=== PATIENT | male | born 1965 | race Caucasian/White ===

== ENCOUNTER 2016-09-21 07:15 | Observation (INO) | payer BC ==
[2016-09-21] VITALS (12 sets, daily range): BP systolic 115–145; BP diastolic 71–99; PULSE 65–91; RESP 16–20; TEMP 96.6–98.8; O2SAT 94–100
[~2016-09-21] VITALS: Ht 188 cm; Wt 141.3 kg
[2016-09-21] MEDS ORDERED: ASPI1TAB69 PO (07:43)
[2016-09-21] MEDS ORDERED: ASPIRIN 81 MG CHEW TAB PO ONE (07:45)
[2016-09-21] MEDS ORDERED: SODIUM CHLORIDE 0.9% FLUSH 5 ML FLUSH IVF PRN ×2 (07:45→09:45)
--- NOTE | 2016-09-21 07:45 | PD ---
HPI Chief Complaint: Chest Pain Time Seen by Provider: 07:38 Travel History International Travel<30 days: No Contact w/Intl Traveler<30days: No Traveled to known affect area: No History of Present Illness HPI 51-year-old male with history of either SVT or A. fib status post ablation 2 years ago, followed by scraper hand Dr. Prater, here for evaluation of chest pain. The patient has had left-sided chest pain for the last 2 days which is intermittently worse at times. He notices the pain is worse in the mornings. There are no modifying factors. Pain is described as an ache, nonradiating. He denies dyspnea. No history of DVT or PE. No known history of coronary artery disease. No paresthesias or motor deficits. No fevers, chills, cough, or recent illness. PFSH Past Medical History Heart Rhythm Problems: Yes Cancer: No Cardiovascular Problems: No High Cholesterol: No Chest Pain: No Congestive Heart Failure: No Diabetes: No Diminished Hearing: No Endocrine: No Gastrointestinal Disorders: No Genitourinary: No Hypertension: Yes Immune Disorder: No Implanted Vascular Access Dvce: No Musculoskeletal: No Neurologic: No Psychiatric: No Reproductive: No Respiratory: No Immunizations Current: Yes Past Surgical History Cardiac Surgery: Yes (ablation) Eye Surgery: Yes (RIGHT EYE) Oral Surgery: Yes (TEETH PULLED) Tonsillectomy: Yes Other Surgery: Yes (T&A) Social History Alcohol Use: No Tobacco Use: No Substance Use: No Allergies-Medications (Allergen,Severity, Reaction): Coded Allergies: Amoxicillin (Verified Allergy, Mild, nausea, 09/21/16) Reported Meds & Prescriptions Reported Meds & Active Scripts Active Reported Aspirin 81 Mg Tabdr 81 Mg PO DAILY Review of Systems Except as stated in HPI: all other systems reviewed are Neg Physical Exam Narrative GENERAL: Well-developed, well-nourished, comfortable, no acute distress. SKIN: Warm and dry. No rash. HEAD: Atraumatic. Normocephalic. EYES: Pupils equal and round. No scleral icterus. No injection or drainage. ENT: Mucous membranes pink and moist. NECK: Trachea midline. No JVD. CARDIOVASCULAR: Regular rate and rhythm. Distal pulses brisk and equal bilaterally. RESPIRATORY: No accessory muscle use. Clear to auscultation. Breath sounds equal bilaterally. GASTROINTESTINAL: Abdomen soft, non-tender, nondistended. MUSCULOSKELETAL: No obvious deformities. No clubbing. No cyanosis. No edema. NEUROLOGICAL: Awake and alert. No obvious cranial nerve deficits. Motor grossly within normal limits. Normal speech. PSYCHIATRIC: Appropriate mood and affect; insight and judgment normal. Data Data Last Documented VS Vital Signs Date Time Temp Pulse Resp B/P Pulse Ox O2 Delivery O2 Flow Rate FiO2 09/21/16 08:02 16 09/21/16 08:00 91 125/71 94 Room Air 09/21/16 07:20 98.8 Orders Basic Metabolic Panel (Bmp) (09/21/16 07:42) Ckmb (Isoenzyme) Profile (09/21/16 07:42) Complete Blood Count With Diff (09/21/16 07:42) Magnesium (Mg) (09/21/16 07:42) Prothrombin Time / Inr (Pt) (09/21/16 07:42) Act Partial Throm Time (Ptt) (09/21/16 07:42) Troponin I (09/21/16 07:42) Chest, Single Ap (09/21/16 07:42) Ecg Monitoring (09/21/16 07:42) Bilateral Bp Monitoring (09/21/16 07:42) Iv Access Insert/Monitor (09/21/16 07:42) Oximetry (09/21/16 07:42) Aspirin Chew (Aspirin Chew) (09/21/16 07:45) Sodium Chloride 0.9% Flush (Ns Flush) (09/21/16 07:45) Nitroglycerin Sl (Nitrostat Sl) (09/21/16 07:45) CKMB (09/21/16 07:35) CKMB% (09/21/16 07:35) Labs Laboratory Tests Test 09/21/16 07:35 White Blood Count 7.0 TH/MM3 Red Blood Count 5.44 MIL/MM3 Hemoglobin 16.1 GM/DL Hematocrit 49.4 % Mean Corpuscular Volume 90.9 FL Mean Corpuscular Hemoglobin 29.6 PG Mean Corpuscular Hemoglobin 32.6 % Concent Red Cell Distribution Width 12.4 % Platelet Count 212 TH/MM3 Mean Platelet Volume 9.0 FL Neutrophils (%) (Auto) 59.3 % Lymphocytes (%) (Auto) 30.6 % Monocytes (%) (Auto) 8.0 % Eosinophils (%) (Auto) 1.7 % Basophils (%) (Auto) 0.4 % Neutrophils # (Auto) 4.2 TH/MM3 Lymphocytes # (Auto) 2.1 TH/MM3 Monocytes # (Auto) 0.6 TH/MM3 Eosinophils # (Auto) 0.1 TH/MM3 Basophils # (Auto) 0.0 TH/MM3 CBC Comment DIFF FINAL Differential Comment Prothrombin Time 10.4 SEC Prothromb Time International 0.9 RATIO Ratio Activated Partial 26.5 SEC Thromboplast Time Sodium Level 142 MEQ/L Potassium Level 4.3 MEQ/L Chloride Level 111 MEQ/L Carbon Dioxide Level 23.0 MEQ/L Anion Gap 8 MEQ/L Blood Urea Nitrogen 13 MG/DL Creatinine 0.79 MG/DL Estimat Glomerular Filtration 103 ML/MIN Rate Random Glucose 98 MG/DL Calcium Level 8.5 MG/DL Magnesium Level 2.0 MG/DL Total Creatine Kinase 200 U/L Creatine Kinase MB 1.9 NG/ML Troponin I LESS THAN 0.02 NG/ML MDM Medical Decision Making Medical Screen Exam Complete: Yes Emergency Medical Condition: Yes Medical Record Reviewed: Yes Interpretation(s) EKG: Sinus, rate 68, leftward axis, normal intervals, nonspecific inferior T- wave changes, poor R-wave progression, no ST segment abnormalities. Differential Diagnosis ACS, pneumothorax, pericarditis, PE, pneumonia, dissection Narrative Course Vital signs show heart rate 65, blood pressure 137/76, pulse ox 99% on room air , oral temp of 98.8F. CBC is unremarkable. BMP is unremarkable. Cardiac enzymes are negative. Chest x-ray interpreted by me shows no infiltrate, no pneumothorax, no free air. The patient was given 2 sublingual nitroglycerin with complete resolution in chest pain. He was made aware of all findings. I believe he is a good candidate for further cardiac evaluation in the chest pain center. He is amenable to this plan. Case discussed with the patient's scraper hand Dr. Prater who agrees with admission to the chest pain center. Case discussed with hospitalist Dr. Kruse who will admit the patient to her service. Diagnosis Primary Impression: Chest pain Qualified Code: R07.9 - Chest pain, unspecified type Admitting Information Admitting Physician Requests: Ken Fleming MD Sep 21, 2016 07:45
[2016-09-21] MEDS: NITROGLYCERIN 0.4 MG SL 25 TABS/BTL SL SCH ×3 (07:52→07:57)
[2016-09-21 08:02] LABS: AUTOMATED NEUTROPHIL # 4.2 TH/MM3 (1.8-7.7); BASOPHIL % 0.4 % (0.0-2.0); EOSINOPHIL # 0.1 TH/MM3 (0-0.4); EOSINOPHIL % 1.7 % (0.0-4.0); HEMATOCRIT 49.4 % (39.0-51.0); HEMO FLAGS DIFF FINAL; LYMPH % 30.6 % (9.0-44.0); LYMPHOCYTE # 2.1 TH/MM3 (1.0-4.8); MEAN CELL VOLUME 90.9 FL (80.0-100.0); MEAN CORPUSCULAR HEMOGLOBIN 29.6 PG (27.0-34.0); MEAN CORPUSCULAR HGB CONC 32.6 % (32.0-36.0); NEUT % 59.3 % (16.0-70.0); PLATELET COUNT 212 TH/MM3 (150-450); RED BLOOD COUNT 5.44 MIL/MM3 (4.50-5.90); RED CELL DISTRIBUTION WIDTH 12.4 % (11.6-17.2)
[2016-09-21 08:08] LABS: CHLORIDE 111 MEQ/L (98-107); POTASSIUM 4.3 MEQ/L (3.5-5.1); SODIUM (NA) 142 MEQ/L (136-145)
[2016-09-21 08:12] LABS: ANION GAP 8 MEQ/L (5-15); BLOOD UREA NITROGEN 13 MG/DL (7-18)
[2016-09-21 08:13] LABS: APTT (PATIENT) 26.5 SEC (24.3-30.1); INTERNATIONAL NORMALIZED RATIO 0.9 RATIO; PROTHROMBIN TIME - PATIENT 10.4 SEC (9.8-11.6)
[2016-09-21 08:15] LABS: GLOMERULAR FILTRATION RATE 103 ML/MIN (>89)
[2016-09-21 08:18] LABS: CREATINE KINASE 200 U/L (39-308)
[2016-09-21 08:30] LABS: CKMB 1.9 NG/ML (0.5-3.6)
--- NOTE | 2016-09-21 09:08 | RADHPO ---
EXAM DATE/TIME: 09/21/2016 07:44 [facility] COMPARISON: CHEST SINGLE AP, November 06, 2014, 17:45. INDICATIONS : Chest pain for 2 days. MEDICAL HISTORY : None. SURGICAL HISTORY : Cardiac ablation. ENCOUNTER: Initial ACUITY: 2 days PAIN SCORE: 6/10 LOCATION: Bilateral chest FINDINGS: A single view of the chest demonstrates the lungs to be symmetrically aerated without evidence of mas s, infiltrate or effusion. The cardiomediastinal contours are unremarkable. Osseous structures are intact. CONCLUSION: No acute disease. Therese Banuelos MD on September 21, 2016 at 9:06 Board Certified Radiologist. This report was verified electronically.
[2016-09-21] MEDS ORDERED: ONDANSETRON HCL 4 MG/2 ML VIAL IV PRN (09:45)
[2016-09-21] MEDS ORDERED: MORPHINE SULFATE 4 MG/ML INJ IV PRN (09:45)
[2016-09-21] MEDS ORDERED: ACETAMINOPHEN/HYDROcodone 325 MG/7.5 MG TAB PO PRN (09:45)
[2016-09-21] MEDS ORDERED: ACETAMINOPHEN 500 MG CPLT PO PRN (09:45)
[2016-09-21] MEDS ORDERED: NITROGLYCERIN 0.4 MG SL 25 TABS/BTL SL PRN (09:45)
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
[2016-09-21 11:17] LABS: CREATINE KINASE 194 U/L (39-308)
[2016-09-21 11:30] LABS: CKMB 1.6 NG/ML (0.5-3.6)
[2016-09-21] MEDS: SILVER SULFADIAZINE 1% CR 50 GM JAR TOPICAL SCH ×2 (12:41→21:05)
[2016-09-21 14:01] LABS: CREATINE KINASE 181 U/L (39-308)
[2016-09-21 14:15] LABS: CKMB 1.3 NG/ML (0.5-3.6)
[2016-09-21] MEDS ORDERED: IOHEXOL 350 MG/ML 10 ML VIAL (for RAD DIAG) IV ONE (19:54)
--- NOTE | 2016-09-21 20:04 | RADHPO ---
EXAM DATE/TIME: 09/21/2016 19:23 [facility] COMPARISON: No previous studies available for comparison. INDICATIONS : Left chest pain. IV CONTRAST: 75 cc Omnipaque 350 (iohexol) IV RADIATION DOSE: 21.81 CTDIvol (mGy) MEDICAL HISTORY : Hypertension. SURGICAL HISTORY : Cardiac ablation. ENCOUNTER: Initial ACUITY: 2 days PAIN SCALE: 1/10 LOCATION: Left chest TECHNIQUE: Volumetric scanning of the chest was performed using a pulmonary embolism protocol MIP images were re constructed. Using automated exposure control and adjustment of the mA and/or kV according to patien t size, radiation dose was kept as low as reasonably achievable to obtain optimal diagnostic quality images. FINDINGS: PULMONARY ARTERIES: No filling defects are seen in the pulmonary arteries through the segmental level. LUNGS: There is no consolidation or pneumothorax . No concerning pulmonary nodule is visualized. PLEURAE: There is no pleural thickening or pleural effusion. MEDIASTINUM: There is good visualization of the great vessels of the middle mediastinum. No evidence of mediastin al or hilar adenopathy/mass. Incidental direct origin of the left vertebral artery from the aortic ar ch. MUSCULOSKELETAL: Within normal limits for patient age. MISCELLANEOUS: The visualized upper abdominal organs demonstrate no acute abnormality. CONCLUSION: No evidence of pulmonary embolism George Kapadia MD on September 21, 2016 at 19:56 Board Certified Radiologist. This report was verified electronically.
[2016-09-21] MEDS: SODIUM CHLOR 0.9% 1000 ML INJ 1,000 ML IV SCH (21:05)
[2016-09-21] MEDS: SODIUM CHLORIDE 0.9% FLUSH 5 ML FLUSH IVF SCH (21:05)
[2016-09-22] VITALS: BP 107/75; PULSE 67; RESP 18; TEMP 95.9; O2SAT 96
[2016-09-22 04:00] VITALS: BP 109/76; PULSE 75; RESP 18; TEMP 96; O2SAT 97
[2016-09-22] MEDS: SODIUM CHLOR 0.9% 1000 ML INJ 1,000 ML IV SCH (04:30)
[2016-09-22] MEDS: SODIUM CHLORIDE 0.9% FLUSH 5 ML FLUSH IVF SCH (07:37)
[2016-09-22 07:38] VITALS: PULSE 94
[2016-09-22 07:51] VITALS: O2SAT 96
[2016-09-22 08:00] VITALS: BP 134/87; PULSE 67; RESP 20; TEMP 96.3; O2SAT 94
[2016-09-22] MEDS: SILVER SULFADIAZINE 1% CR 50 GM JAR TOPICAL SCH (08:12)
[2016-09-22] MEDS ORDERED: ASPIRIN 325 MG TAB PO SCH (09:00)
[2016-09-22] MEDS ORDERED: REGADENOSON INJ 0.4 MG/5 ML SYR IV ONE (10:05)
--- NOTE | 2016-09-22 11:17 | RADHPO ---
EXAM DATE/TIME: 09/22/2016 10:25 [facility] COMPARISON: MYOCARDIAL PERF PHARM SPECT, GATED W/EF, November 07, 2014, 14:20. INDICATIONS : Substernal chest pain without radiation. Abnormal exercise treadmill test. DOSE: 35 mCi Tc99m Myoview at stress. 11 mCi Tc99m Myoview at rest. 0.4 mg Lexiscan STRESS SYMPTOMS: Dyspnea and headache. EJECTION FRACTION: 56% MEDICAL HISTORY : Atrial fibrillation. SURGICAL HISTORY : Tonsillectomy. Cardiac ablation. ENCOUNTER: Initial ACUITY: 2 days PAIN SCALE: 6/10 LOCATION: Substernal chest TECHNIQUE: The patient underwent pharmacologic stress with infusion of prescribed dose. Continuous ECG tracing was monitored during stress. Gated SPECT imaging was performed after stress and conventional SPECT i maging was performed at rest. The examination was performed on a SPECT/CT scanner, both attenuation and non-corrected datasets were reviewed. FINDINGS: DISTRIBUTION: The maximum perfused segment at stress is in the anterolateral wall. PERFUSION STUDY: The pattern of perfusion at stress is within normal limits. GATED STUDY: There is intact wall motion and thickening without hypokinetic or dyskinetic segments. CONCLUSION: No reversible perfusion defect to indicate stress-induced myocardial ischemia identified. RISK CATEGORY: Low (<1% Annual Mortality Rate) Ciro Urbina MD on September 22, 2016 at 11:14 Board Certified Radiologist. This report was verified electronically.
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
[2016-09-22] MEDS ORDERED: ACETAMINOPHEN 325 MG TAB PO ONE (11:45)
[2016-09-22 11:54] VITALS: BP 149/93; PULSE 69; RESP 20; TEMP 97.6; O2SAT 97
[2016-09-22] MEDS ORDERED: BACT800T5 PO (12:06)
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
--- NOTE | 2016-09-22 15:21 | EKG ---
Date Performed: 09/21/2016 Time Performed: 14:20:20 PTAGE: 51 years EKG: Sinus rhythm Poor R wave progression - probable normal variant Inferior and anterior T wave changes are nonspecif ic Borderline ECG PREVIOUS TRACING : 09/21/2016 10.49 Since previous tracing, no significant change noted DOCTOR: David Hartley Interpretating Date/Time 09/22/2016 15:20:17
--- NOTE | 2016-09-22 15:23 | EKG ---
Date Performed: 09/21/2016 Time Performed: 10:49:50 PTAGE: 51 years EKG: Sinus rhythm Poor R wave progression - probable normal variant Borderline ECG PREVIOUS TRACING : 09/21/2016 07.30 Since previous tracing, no significant change noted DOCTOR: David Hartley Interpretating Date/Time 09/22/2016 15:21:48
--- NOTE | 2016-09-22 15:23 | EKG ---
Date Performed: 09/21/2016 Time Performed: 07:30:04 PTAGE: 51 years EKG: Sinus rhythm Poor R wave progression - probable normal variant Borderline ECG PREVIOUS TRACING : 12/08/2014 04.58 Since previous tracing, no significant change noted DOCTOR: David Hartley Interpretating Date/Time 09/22/2016 15:22:32
--- NOTE | 2016-09-22 15:25 | TR ---
Date Performed: 09/22/2016 Time Performed: 10:30:46 DOCTOR: David Hartley DRUG LIST: CLINICAL HISTORY: CHEST PAIN CHEST PAIN REASON FOR TEST: Chest pain. REASON FOR ENDING: OBSERVATION: CONCLUSION: Lexiscan stress test was performed under standard four minute protocol. Radionuclid e was injected one minute prior to ending the test. No electrocardiographic abormalities were present to suggest ischemia. Nuclear imaging and interpretation are pending. COMMENTS:
--- NOTE | 2016-09-22 15:30 | TR ---
Date Performed: 09/21/2016 Time Performed: 16:12:36 DOCTOR: David Hartley DRUG LIST: CLINICAL HISTORY: CHEST PAIN REASON FOR TEST: REASON FOR ENDING: OBSERVATION: CONCLUSION: Patient tolerated ZABRINA protocol with Total Exercise Time=6:37 Maximum WL=553 % Max HR Achieved=86.0% Maximum UU=952/80. Testing stopped due to goal achieved and exercise fatigue. Patie nt started out with 1/10 L sided chest pain which worsened to 5/10 with exertion and started decreasi ng during recovery. HR and BP appropriate response to exercise. HR and BP receovered appropriately. COMMENTS: ST changes noted at peak exercise. This resolved quickly in recovery suggesting possib le false positive. Will repeat with nuclear imaging
== END 2016-09-22 12:50 | disposition home or self-care (01) ==
LOC: PHED 07:15 → PHEDA 09:20 → PHEDH 13:18 → PH3B 21:44
PROVIDERS: ADMIT Hospitalist; ATTEND Hospitalist
DX: R07.89 Other chest pain (principal); R23.4 Changes in skin texture; I48.91 Unspecified atrial fibrillation; I10 Essential (primary) hypertension; R94.31 Abnormal electrocardiogram [ECG] [EKG]; E66.3 Overweight; Z68.41 Body mass index [BMI] 40.0-44.9, adult; Z82.49 Family history of ischemic heart disease and other diseases of the circulatory system
CPT/HCPCS: 71010; 71275; 78452; 80048; 82550; 82552; 83735; 84484; 85025; 85379; 85610; 85730; 93005; 93017; 99285; A9502; G0378; J2785; J7030; Q9967

== ENCOUNTER 2016-11-15 07:58 | Day surgery (SDC) | payer BC ==
[~2016-11-15] VITALS: Ht 188 cm; Wt 140.3 kg
[~2016-11-15 07:58] MED LIST: ASPI1TAB69 PO; BACT800T5 PO
[2016-11-15 08:15] VITALS: BP 142/98; PULSE 66; RESP 18; O2SAT 97
[2016-11-15] MEDS ORDERED: diphenhydrAMINE HCL 50 MG CAP PO SCH (08:30)
[2016-11-15] MEDS ORDERED: METO25TA3 PO (08:54)
[2016-11-15] MEDS ORDERED: NITR0.4S SL (08:54)
[2016-11-15] MEDS ORDERED: RANO500 PO (08:54)
[2016-11-15] MEDS ORDERED: NS 1000P @30 MLS/HR (KVO) IV SCH (09:00)
[2016-11-15 09:11] LABS: AUTOMATED NEUTROPHIL # 4.9 TH/MM3 (1.8-7.7); BASOPHIL % 0.5 % (0.0-2.0); EOSINOPHIL # 0.1 TH/MM3 (0-0.4); EOSINOPHIL % 1.8 % (0.0-4.0); HEMATOCRIT 44.7 % (39.0-51.0); HEMO FLAGS DIFF FINAL; LYMPH % 24.5 % (9.0-44.0); LYMPHOCYTE # 1.9 TH/MM3 (1.0-4.8); MEAN CELL VOLUME 89.7 FL (80.0-100.0); MEAN CORPUSCULAR HEMOGLOBIN 31.5 PG (27.0-34.0); MEAN CORPUSCULAR HGB CONC 35.1 % (32.0-36.0); MONO % 9.1 % (0.0-8.0); NEUT % 64.1 % (16.0-70.0); PLATELET COUNT 173 TH/MM3 (150-450); RED BLOOD COUNT 4.99 MIL/MM3 (4.50-5.90); RED CELL DISTRIBUTION WIDTH 12.9 % (11.6-17.2); WHITE BLOOD COUNT 7.6 TH/MM3 (4.0-11.0)
[2016-11-15 09:17] LABS: APTT (PATIENT) 26.2 SEC (24.3-30.1); INTERNATIONAL NORMALIZED RATIO 0.9 RATIO; PROTHROMBIN TIME - PATIENT 10.2 SEC (9.8-11.6)
[2016-11-15 09:25] LABS: BICARBONATE 25.9 MEQ/L (21.0-32.0); POTASSIUM 4.1 MEQ/L (3.5-5.1)
[2016-11-15] MEDS ORDERED: HEPARIN-NS/PF INJ 500 ML ONE (09:55)
[2016-11-15] MEDS ORDERED: HEPARIN SODIUM - IV 10,000 UNITS/10 ML VIAL ONE (09:57)
[2016-11-15] MEDS ORDERED: NITROGLYCERIN INJ 5 ML ONE (09:57)
[2016-11-15] MEDS ORDERED: VERAPAMIL HCL 5 MG/2 ML VIAL ONE (09:57)
[2016-11-15] MEDS ORDERED: MIDAZOLAM HCL 2 MG/2 ML VIAL ONE (09:58)
[2016-11-15] MEDS ORDERED: MISC INFORMATION XX ONE (11:00)
--- NOTE | 2016-11-15 11:04 | MA ---
cc: NORMAJACKIE DATE: 11/15/2016 DATE OF : 1965 PROCEDURE PERFORMED 1. Left heart catheterization. 2. Selective right and left coronary angiography. 3. Left ventriculogram. INDICATION Angina. ACCESS Right transradial. DESCRIPTION OF PROCEDURE The consent was signed. 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 The right wrist was prepped and draped in sterile fashion. Using 1% lidocaine for local anesthesia and a micropuncture kit a 6-Syrian sheath was inserted into the right radial artery. An antispasmodic cocktail was given then selective right and left coronary angiography was performed with JR4 and JL4 diagnostic catheters. Angiography was performed in multiple views. Then an angled pigtail was introduced over a wire to the left ventricle followed by pressure recordings, left ventriculogram and then pullback. The patient tolerated the procedure the procedure well without complications. Estimated blood loss less than 30 cc. Total contrast used 100 cc. The right radial access site was closed with a TR band. RESULTS LEFT VENTRICLE The left ventricular pressure was 118/10 with an LVEDP of 15. The aortic pressure was 112/76 with a mean of 93. The left ventriculogram revealed a symmetric kane ventricle with an estimated ejection fraction of 60%. ANGIOGRAPHY 1. The right coronary artery was dominant with nonobstructive coronary artery disease. The right coronary artery is giving off the PDA which is also patent with nonobstructive coronary artery disease. 2. The left main is short with nonobstructive coronary artery disease. 3. The LAD has minimal luminal irregularities. It is a transapical vessel. It has nonobstructive coronary artery disease and MARISOL-III flow. The vessel has three diagonals which are patent with nonobstructive coronary artery disease. 4. The left circumflex artery has minimal luminal irregularities. It has a high bifurcating OM1 which is patent with MARISOL-III flow. The rest of the circumflex is also patent with MARISOL-III flow and nonobstructive coronary artery disease. CONCLUSIONS 1. Non-obstructive coronary disease 2. Preserved LV systolic function. RECOMMENDATIONS Continue aggressive medical management for primary prevention of coronary artery disease. The patient should follow-up with Dr. Prater on discharge. MD ARIEL Kan/SRINIVAS /10:45 AM /10:56 AM MTDD
[2016-11-15] MEDS ORDERED: IOHEXOL 350 MG/ML 100 ML BTL (for Cath Lab) OTHER ONE (12:41)
--- NOTE | 2016-11-16 08:27 | EKG ---
Date Performed: 11/15/2016 Time Performed: 08:51:24 PTAGE: 51 years EKG: Sinus rhythm Possible anterior infarct - age undetermined Low QRS voltages in precordial leads Abnormal ECG PREVIOUS TRACING : 09/21/2016 14.20 DOCTOR: Andrés Thompson Interpretating Date/Time 11/16/2016 08:25:38
== END 2016-11-15 15:58 | disposition home or self-care (01) ==
LOC: HDOC 07:58 → HDIC 07:59 → HDOC 15:58
PROVIDERS: ATTEND Radiology Vascular & Interventional Radiology
DX: I25.119 Atherosclerotic heart disease of native coronary artery with unspecified angina pectoris (principal)
CPT/HCPCS: 80048; 85025; 85610; 85730; 93005; 93458; C1769; C1893; J1644; J2250; J3010; J7030; Q0163; Q9967